=== PATIENT | female | born 2000 | race Caucasian/White ===

== ENCOUNTER 2025-01-15 06:26 | Outpatient (REF) | payer OTHER, SELFPAY ==
--- NOTE | ~2025-01-15 | US_ITS ---
CLINICAL HISTORY: GROSS HEMATURIA US retroperitoneum Comparison: None Findings: Right kidney normal size and echotexture, 10.3 cm length. No hydronephrosis, mass or calculus. Normal color flow. Left kidney normal size and echotexture, 11.1 cm in length. No hydronephrosis, mass or calculus. Normal color flow. Urinary bladder is smoothly distended, no wall thickening, mass or calculus. Prevoid volume 398 mL. Postvoid volume 31 mL. Ureteral jets are visualized bilaterally. Impression: Prominent postvoid bladder residual volume 31 mL, otherwise normal. This document has been electronically signed by: Brandie Christina MD on 01/17/2025 09:07:53
== END 2025-01-15 06:27 | disposition home or self-care (01) ==
LOC: HO.UMASIMG 06:26
PROVIDERS: Visit Provider Family Medicine
DX: R31.0 Gross hematuria (principal)
CPT/HCPCS: 76770

== ENCOUNTER → 2025-01-15 10:00 | Outpatient (BNV) | payer OTHER, SELFPAY | PROVIDERS: Visit Provider Radiology Diagnostic Radiology | DX: R31.0 Gross hematuria (principal) | CPT/HCPCS: 76770 ==